=== PATIENT | female | born 1995 | race Two or more races ===

== ENCOUNTER 2019-03-16 23:41 | Inpatient (IN) | payer BC, MEDICAID ==
[~2019-03-16] VITALS: Ht 162.6 cm; Wt 81.8 kg
--- NOTE | 2019-03-17 00:04 | NUR ---
PT SEIZED FOR 30 SECONDS. HU HOOD NOTIFIED. O2 SAT STAYED WITHIN 95-98% DURING SEIZURE. HR 130S. PT NOW IN POST ICTAL STATE WITH A&OX0. WILL CONTINUE TO MONITOR.
--- NOTE | 2019-03-17 00:07 | NUR ---
PT BACK AT BASELINE, A&OX4
[2019-03-17 01:11] LABS: HCG SERUM QL NEGATIVE
--- NOTE | 2019-03-17 01:49 | NUR ---
PT WITH FAMILY AT BEDSIDE. AWAITING TELENEUROLOGY CONSULT. CURRENT VSS.
--- NOTE | 2019-03-17 02:25 | NUR ---
TELE NEURO CONSULT IN PROGRESS NOW.
--- NOTE | 2019-03-17 02:55 | NUR ---
tele neuro MD Dr. Wilder, consult completed and he is talking to Dr. Washington now.
[2019-03-17] MEDS ORDERED: BUPR100T5 PO (03:03)
[2019-03-17] MEDS ORDERED: LAMO25TA94 PO (03:05)
[2019-03-17] MEDS ORDERED: Levetiracetam-NS 500mg/100ml 100 ML IV ONE (03:10)
[2019-03-17] MEDS ORDERED: magnesium hydroxide 30ml (MOM) UD suspension PO PRN (03:30)
[2019-03-17] MEDS ORDERED: acetaminophen 325mg tablet PO PRN (03:30)
[2019-03-17] MEDS ORDERED: ondansetron/PF 4mg/2ml inj IV ONE (03:30)
[2019-03-17] MEDS ORDERED: mag hydrox/Alum hydrox/simeth 30ml oral suspension PO PRN (03:30)
--- NOTE | 2019-03-17 04:20 | NUR ---
rcd pt from er alert and oriented x3.father and friend at the bedside.informed pt about having eeg today,pt asked crying why coz she had multiple done last one was when she was in 8th grade,explained to pt and father said in short she doesn't want it.pt agreed to page certified cytotechnologist and wanted to talk to neurologist.
[2019-03-17 04:30] VITALS: BP 145/92
[2019-03-17 06:00] VITALS: BP 110/70
--- NOTE | 2019-03-17 06:30 | NUR ---
Patient in room ORTH[facility] 4014. I have received report from September and had the opportunity to ask questions and assume patient care.
[2019-03-17] MEDS ORDERED: levetiracetam inj 500 MG in normal saline 100ml IV soln 95 ML IV SCH (08:00)
[2019-03-17] MEDS ORDERED: lamoTRIgine 25mg tablet PO SCH (08:00)
[2019-03-17] MEDS ORDERED: levetiracetam 250mg tablet PO SCH ×2 (08:00→15:00)
[2019-03-17 10:00] VITALS: BP 114/70
--- NOTE | 2019-03-17 10:11 | NUR ---
PAGER ID: [phone] MESSAGE: Good morning Dr. Garibay, Ms. Thapa in 4014B is having nausea. Are we able to have an order for Zofran or? Thank you, Brittny
--- NOTE | 2019-03-17 10:54 | NUR ---
Student documentation: I have reviewed all interventions, assessments performed and documented by Dee Canales. Student Medication Administration: For this medication-pass time frame, all medication were reviewed, dispensed, administered and documented per hospital policy by Dee Canales.
[2019-03-17] MEDS ORDERED: ondansetron/PF 4mg/2ml inj IV PRN (11:05)
[2019-03-17] MEDS ORDERED: LEVE250T PO (11:13)
--- NOTE | 2019-03-17 12:10 | NUR ---
Reviewed discharge instructions with pt. Pt verbalized understanding. Pt is alert, oriented and does not have c/o discomfort at this time. Pt was wheeled downstairs to be driven home by her father.
== END 2019-03-17 12:00 | disposition home or self-care (01) | DRG 101 ==
LOC: ER 23:42 → ORTHO 4S 03-17 04:21 → CMPBEDREQ 03-17 04:35
PROVIDERS: ADMIT Internal Medicine; ATTEND Family Medicine
DX: G40.901 Epilepsy, unspecified, not intractable, with status epilepticus (principal); F12.90 Cannabis use, unspecified, uncomplicated; Z88.8 Allergy status to other drugs, medicaments and biological substances
CPT/HCPCS: 36415; 80177; 84703; 87081; 96365; 96375; 99285; G0378; J1953; J2405